=== PATIENT | male | born 1985 | race Caucasian/White ===

== ENCOUNTER 2017-07-29 11:06 | Emergency (ER) | payer OTHER ==
[~2017-07-29] VITALS: Ht 167.6 cm; Wt 70.3 kg
--- NOTE | 2017-07-29 11:15 | NUR ---
ARRIVAL PATIENT ARRIVED AMBULATORY TO ED ROOM 4. PATIENT REPORTS FALLING ON HIS CHEST A FEW DAYS AGO.
[2017-07-29 11:17] VITALS: BP 132/84
--- NOTE | 2017-07-29 11:28 | NUR ---
DR. NAIF CHAN MBA IN WITH PATIENT. NEW ORDERS RECEIVED.
[2017-07-29] MEDS ORDERED: TORADOL IM STA (11:32)
[2017-07-29] MEDS ORDERED: TORADOL ONE (11:35)
--- NOTE | 2017-07-29 11:42 | ER.PDOC ---
General Chief Complaint: Chest wall pain Stated Complaint: Chest wall pain Time seen by MD: 11:36 Source: patient Exam Limitations: no limitations History of Present Illness Initial Comments Left ribs and anterior chest wall tenderness S/P fall and hitting his chest 4 days ago. Where: home Context: fall Allergies: Coded Allergies: No Known Allergies (Unverified , 07/29/17) Past Medical History Surgical History: no surgical history Social History Smoking: greater than 1 pack/day Drug Use: marijuana Review of Systems Constitutional: no symptoms reported Throat: no symptoms reported Respiratory: no symptoms reported Cardiovascular: see HPI Gastrointestinal: no symptoms reported Genitourinary: no symptoms reported All Other Systems: Reviewed and Negative Physical Exam General Appearance: No Apparent Distress, WD/WN Head: No Evidence of Injury Ears, Nose, Throat: Hearing Grossly Normal, No Evidence of ENT Injury, No Dental Injury Respiratory: normal breath sounds, no respiratory distress, tenderness ( anterior and lateral chest wall) Cardiovascular/Chest: Normal Peripheral Pulses, Regular Rate, Rhythm, No Edema , No Gallop, No JVD, No Murmur Gastrointestinal: Normal Bowel Sounds, No Organomegaly, No Pulsatile Mass, Non Tender, Soft Back: Normal Inspection, No CVA Tenderness, No Vertebral Tenderness Extremities: No Evidence of Injury, Normal Range of Motion, Non-Tender, No Pedal Edema Neurologic/Psychiatric: cement based materials pump tender II-XII NML as Tested, No Motor/Sensory Deficits, Alert, Normal Mood/Affect, Oriented x 3 Skin: Normal Color, Warm/Dry Oleksandr Coma Score Best Eye Response: (4) Open Spontaneously Best Verbal Response: (5) Oriented Best Motor Response: (6) Obeys Commands Results/Orders Results/Orders Administered Medications Medications (Trade) Dose Ordered Sig/Jm Route PRN Reason Start Time Stop Time Status Last Admin Dose Admin Ketorolac Tromethamine (Toradol) 60 mg STAT STAT IM 07/29/17 11:32 07/29/17 11:34 DC 07/29/17 11:42 EKG/XRAY/CT/US XRAY Comments: Unremarkable chest and rib X rays Departure Time of Disposition: 12:22 Disposition: 01 HOME, SELF-CARE Impression: Primary Impression: Contusion, chest wall Qualified Codes: S20.212A - Contusion of left front wall of thorax, initial encounter Condition: Stable Referrals: PCP,UNKNOWN (PCP) PRIMARY CARE PROVIDER Additional Instructions: Ibuprofen Tramadol F/U with your PCP next week Duration or Time Spent with Pa: 60 mins DEEPAK DISLA MD July 29, 2017 11:42
--- NOTE | 2017-07-29 11:55 | DIREP ---
PROCEDURE:XRAY RIBS W/PA CHEST 3VWS-LT COMPARISON:None. INDICATIONS:PAIN FROM FALLING TECHNIQUE:PA chest and 4 view of the left ribs FINDINGS: Left RIBS:No displayed fracture. LUNGS/PLEURA:No confluent pulmonary infiltrate. No effusions. No pneumothorax. VASCULATURE:Unremarkable pulmonary vasculature. CARDIAC:No cardiac silhouette abnormality or cardiomegaly. MEDIASTINUM:No visible mass or adenopathy. BONES:No fracture or visible bony lesion. OTHER:Negative. CONCLUSION: 1. Unremarkable chest radiograph, no displaced rib fracture identified. Dictated by: Priscilla Farfan MD on 07/29/2017 at 11:53 AM
[2017-07-29 12:39] VITALS: BP 135/87
== END 2017-07-29 12:36 | disposition home or self-care (01) ==
LOC: ER 11:06
DX: S20.212A Contusion of left front wall of thorax, initial encounter (principal); F12.10 Cannabis abuse, uncomplicated; F17.200 Nicotine dependence, unspecified, uncomplicated; W01.198A Fall on same level from slipping, tripping and stumbling with subsequent striking against other object, initial encounter; Y93.89 Activity, other specified; Y92.098 Other place in other non-institutional residence as the place of occurrence of the external cause; Y99.8 Other external cause status
CPT/HCPCS: 71101; 96372; 99284; J1885